=== PATIENT | female | born 1940 | race Caucasian/White ===

== ENCOUNTER 2016-09-29 10:35 | Emergency (ER) | payer MEDICARE, BC ==
[2016-09-29] MEDS: SODIUM CHLORIDE 0.9% FLUSH 10 ML SOL IV PRN ×2 (10:38→10:49)
[2016-09-29] MEDS ORDERED: METOPROLOL TARTRATE 5 MG/5 ML SOL IV ONE ×2 (10:43→10:47)
[2016-09-29] MEDS ORDERED: SODIUM CHLORIDE 0.9% 1000ML 1,000 ML IV ONE (10:50)
[2016-09-29 11:05] LABS: HEMATOCRIT 49 % (35-47); MEAN CORPUSCULAR HGB CONC 34.6 gm/dl (32.0-36.0); MEAN CORPUSCULAR VOLUME 89 fL (81-99)
[2016-09-29 11:08] VITALS: TEMP 96.3
[2016-09-29 11:15] LABS: BASOPHILS % (MANUAL) 0 % (0-3); EOSINOPHILS % (MANUAL) 0 % (0-9); LYMPHOCYTES % (MANUAL) 5 % (10-50); NORMAL RBCS PRESENT
[2016-09-29 11:20] LABS: ALBUMIN 3.8 gm/dl (3.4-5.0); ALT 46 IU/L (14-63); CALCIUM 9.9 mg/dl (8.5-10.1); GLOM FILT RATE 52 mL/min (>60); SODIUM 139 mMol/L (136-145)
[2016-09-29 12:12] LABS: APPEARANCE,URINE Clear; BILIRUBIN,URINE NEGATIVE (NEGATIVE); COLOR,URINE Yellow; GLUCOSE, URINE (UA) NEGATIVE (NEGATIVE); KETONES,URINE NEGATIVE (NEGATIVE); LEUKOCYTE ESTERASE ,URINE NEGATIVE (NEGATIVE); NITRATE,URINE NEGATIVE (NEGATIVE); OCCULT BLOOD,URINE NEGATIVE (NEG-TRACE); PH,URINE 6.5; UROBILINOGEN,URINE 0.2 (0.2-1.0 EU)
[2016-09-29 12:26] LABS: RBC,URINE NEGATIVE (0-3AV/HPF); WBC,URINE 0-1 (0-5AV/HPF)
[2016-09-29] MEDS ORDERED: NAPROXEN 500 MG TAB ONE (13:33)
[2016-09-29] MEDS ORDERED: NAPROXEN 500 MG TAB PO ONE (13:35)
[2016-09-29 14:49] VITALS: BP 133/80; PULSE 75; RESP 17; O2SAT 98
== END 2016-09-29 13:41 | disposition home or self-care (01) | DRG 310 ==
LOC: ED 10:35
DX: I47.1 Supraventricular tachycardia (principal); J06.9 Acute upper respiratory infection, unspecified
CPT/HCPCS: 71020; 80053; 81001; 84484; 85007; 85027; 93005; 96365; 96366; 96374; 99284; 99285

== ENCOUNTER 2017-04-18 09:26 | Emergency (ER) | payer MEDICARE, BC ==
[2017-04-18] MEDS ORDERED: METOPROLOL TARTRATE 5 MG/5 ML SOL IV ONE ×2 (09:39→09:41)
[2017-04-18] MEDS ORDERED: SODIUM CHLORIDE 0.9% FLUSH 10 ML SOL IV PRN (09:44)
[2017-04-18] MEDS ORDERED: SODIUM CHLORIDE 0.9% 1000ML 1,000 ML IV ONE (09:49)
[2017-04-18 10:17] LABS: CALCIUM 8.8 mg/dl (8.5-10.1); GLOM FILT RATE 55 mL/min (>60); MAGNESIUM 1.7 mg/dl (1.8-2.4); SODIUM 139 mMol/L (136-145); THYROID STIMULATING HORMONE 2.603 uIU/ml (0.358-3.740)
[2017-04-18 10:22] VITALS: O2SAT 95
[2017-04-18 10:24] VITALS: BP 116/74; PULSE 76; RESP 14; TEMP 99.2
[2017-04-18] MEDS ORDERED: MAGNESIUM SULFATE 1 GM/2 ML SOL IV ONE (10:48)
[2017-04-18] MEDS ORDERED: MAGNESIUM SULFATE 5 GM/10 ML SOL ONE (10:54)
[2017-04-18] MEDS ORDERED: ASPIRIN 325 MG TAB PO SCH (11:00)
[2017-04-18] MEDS ORDERED: ASPIRIN 325 MG TAB ONE (11:01)
== END 2017-04-18 12:25 | disposition home or self-care (01) | DRG 310 ==
LOC: ED 09:26
DX: I47.1 Supraventricular tachycardia (principal); E83.42 Hypomagnesemia; R53.83 Other fatigue
CPT/HCPCS: 36415; 80048; 83735; 84100; 84443; 84484; 85027; 85610; 93005; 96365; 96374; 96375; 99284; 99285; J3475

== ENCOUNTER 2018-01-25 09:15 | Emergency (ER) | payer MEDICARE, BC ==
[2018-01-25] MEDS ORDERED: SODIUM CHLORIDE 0.9% 1000ML 1,000 ML IV ONE (10:08)
[2018-01-25] MEDS ORDERED: ONDANSETRON HCL 4 MG/2 ML SOL IV ONE (10:09)
[2018-01-25] MEDS ORDERED: SODIUM CHLORIDE 0.9% FLUSH 10 ML SOL IV PRN (10:17)
[2018-01-25] MEDS ORDERED: ONDANSETRON HCL 4 MG/2 ML SOL ONE (10:18)
[2018-01-25 10:27] VITALS: RESP 16; TEMP 96.9
[2018-01-25 10:27] LABS: BASOPHILS % (AUTO) 1 % (0-3); EOSINOPHILS % (AUTO) 1 % (0-9); HEMATOCRIT 46 % (35-47); HEMOGLOBIN 15.2 gm/dl (12.0-15.5); LYMPHOCYTES % (AUTO) 9.7 % (10-50); MEAN CORPUSCULAR HGB CONC 33.1 gm/dl (32.0-36.0); MEAN CORPUSCULAR VOLUME 91 fL (81-99); MONOCYTES % (AUTO) 6.2 % (0-12)
[2018-01-25 10:39] LABS: ALBUMIN 3.3 gm/dl (3.4-5.0); BILIRUBIN,TOTAL 0.4 mg/dl (0.2-1.0); CREATININE 0.87 mg/dl (0.60-1.00); POTASSIUM 4.1 mMol/L (3.5-5.1); TOTAL PROTEIN 6.5 gm/dl (6.4-8.2)
[2018-01-25 12:03] VITALS: BP 147/80; PULSE 60; O2SAT 97
== END 2018-01-25 12:15 | disposition home or self-care (01) | DRG 392 ==
LOC: ED 09:15
DX: A08.4 Viral intestinal infection, unspecified (principal)
CPT/HCPCS: 80053; 85025; 96365; 96366; 96374; 99283; 99284; J2405

== ENCOUNTER 2018-03-01 13:12 | Emergency (ER) | payer MEDICARE, BC ==
[2018-03-01 13:30] LABS: BASOPHILS % (AUTO) 1 % (0-3); EOSINOPHILS % (AUTO) 4 % (0-9); HEMATOCRIT 50 % (35-47); HEMOGLOBIN 15.8 gm/dl (12.0-15.5); LYMPHOCYTES % (AUTO) 14.3 % (10-50); MEAN CORPUSCULAR HGB CONC 31.5 gm/dl (32.0-36.0); MEAN CORPUSCULAR VOLUME 92 fL (81-99); MONOCYTES % (AUTO) 7.6 % (0-12); NEUTROPHILS % (AUTO) 73.4 % (37-80)
[2018-03-01 13:42] VITALS: TEMP 97.2
[2018-03-01 13:46] LABS: ALBUMIN 3.4 gm/dl (3.4-5.0); ALKALINE PHOSPHATASE 71 IU/L (46-116); ALT 32 IU/L (14-63); AST 27 IU/L (15-37); BILIRUBIN,TOTAL 0.4 mg/dl (0.2-1.0); BLOOD UREA NITROGEN 25 mg/dl (7-18); CALCIUM 9.2 mg/dl (8.5-10.1); CARBON DIOXIDE 26.4 mEq/L (21-32); CHLORIDE 104 mMol/L (98-107); CREATININE 0.84 mg/dl (0.60-1.00); GLUCOSE 123 mg/dl (74-106); MAGNESIUM 2.3 mg/dl (1.8-2.4); POTASSIUM 4.2 mMol/L (3.5-5.1); SODIUM 139 mMol/L (136-145); THYROID STIMULATING HORMONE 3.097 uIU/ml (0.358-3.740); TOTAL PROTEIN 6.8 gm/dl (6.4-8.2); TROP I < 0.017 ng/ml (0.000-0.056)
[2018-03-01 15:11] VITALS: BP 124/80; PULSE 68; RESP 20; O2SAT 96
== END 2018-03-01 14:51 | disposition home or self-care (01) | DRG 309 ==
LOC: ED 13:12
DX: R00.2 Palpitations (principal); I47.1 Supraventricular tachycardia
CPT/HCPCS: 80053; 83735; 84443; 84484; 85025; 93005; 99283

== ENCOUNTER 2018-06-01 07:27 | Emergency (ER) | payer MEDICARE, BC ==
[2018-06-01 07:54] VITALS: TEMP 98.1; O2SAT 97
[2018-06-01 08:11] LABS: BASOPHILS % (AUTO) 1 % (0-3); EOSINOPHILS % (AUTO) 3 % (0-9); HEMATOCRIT 50 % (35-47); HEMOGLOBIN 16.2 gm/dl (12.0-15.5); LYMPHOCYTES % (AUTO) 12.5 % (10-50); MEAN CORPUSCULAR HEMOGLOBIN 29.7 pg (27.0-32.0); MEAN CORPUSCULAR HGB CONC 32.4 gm/dl (32.0-36.0); MEAN CORPUSCULAR VOLUME 92 fL (81-99); NEUTROPHILS % (AUTO) 73.4 % (37-80)
[2018-06-01 08:14] LABS: CALCIUM 9.3 mg/dl (8.5-10.1); CREATININE 0.98 mg/dl (0.60-1.00); POTASSIUM 3.6 mMol/L (3.5-5.1)
[2018-06-01 09:09] VITALS: BP 94/69; PULSE 89; RESP 17
== END 2018-06-01 08:48 | disposition home or self-care (01) | DRG 153 ==
LOC: ED 07:27
DX: J06.9 Acute upper respiratory infection, unspecified (principal); I47.1 Supraventricular tachycardia
CPT/HCPCS: 80048; 85025; 87430; 93005; 99284

== ENCOUNTER 2018-07-09 11:14 | Emergency (ER) | payer BC, MEDICARE, OTHER ==
[2018-07-09 11:25] VITALS: TEMP 97.9
[2018-07-09] MEDS ORDERED: METOPROLOL TARTRATE 5 MG/5 ML SOL IV SCH (11:30)
[2018-07-09 12:35] VITALS: PULSE 75; O2SAT 97
[2018-07-09 12:37] VITALS: BP 123/76; RESP 16
[2018-07-09] MEDS ORDERED: METOPROLOL TARTRATE 5 MG/5 ML SOL IV ONE (12:56)
== END 2018-07-09 12:15 | disposition home or self-care (01) | DRG 310 ==
LOC: ED 11:14
DX: I47.1 Supraventricular tachycardia (principal); I10 Essential (primary) hypertension
CPT/HCPCS: 93005; 96374; 99283; 99284; J3490

== ENCOUNTER 2018-11-12 15:50 | Emergency (ER) | payer OTHER ==
[2018-11-12 15:57] VITALS: RESP 20; TEMP 95.2
[2018-11-12] MEDS ORDERED: ONDANSETRON HCL 4 MG/2 ML SOL IV ONE (16:04)
[2018-11-12] MEDS ORDERED: ONDANSETRON HCL 4 MG/2 ML SOL ONE (16:12)
[2018-11-12 16:13] LABS: BASOPHILS % (AUTO) 1 % (0-3); EOSINOPHILS % (AUTO) 2 % (0-9); HEMATOCRIT 48 % (35-47); HEMOGLOBIN 15.4 gm/dl (12.0-15.5); LYMPHOCYTES % (AUTO) 8.6 % (10-50); MEAN CORPUSCULAR HEMOGLOBIN 28.8 pg (27.0-32.0); MEAN CORPUSCULAR VOLUME 90 fL (81-99); MONOCYTES % (AUTO) 6.2 % (0-12); NEUTROPHILS % (AUTO) 82.2 % (37-80)
[2018-11-12] MEDS ORDERED: SODIUM CHLORIDE 0.9% 1000ML 1,000 ML IV SCH (16:15)
[2018-11-12 16:28] LABS: ALBUMIN 3.4 gm/dl (3.4-5.0); BILIRUBIN,TOTAL 0.5 mg/dl (0.2-1.0); CALCIUM 9.3 mg/dl (8.5-10.1); CARBON DIOXIDE 28.9 mEq/L (21-32); CREATININE 0.86 mg/dl (0.60-1.00); TOTAL PROTEIN 6.7 gm/dl (6.4-8.2)
[2018-11-12 17:49] VITALS: BP 160/84; PULSE 71; O2SAT 99
== END 2018-11-12 17:46 | disposition home or self-care (01) | DRG 392 ==
LOC: ED 15:50
DX: R14.1 Gas pain (principal); R10.13 Epigastric pain
CPT/HCPCS: 74019; 80053; 85025; 96365; 96374; 99283; 99284; J2405

== ENCOUNTER 2018-11-13 00:42 | Inpatient (IN) | payer OTHER ==
[2018-11-13] MEDS ORDERED: ONDANSETRON 4 MG ODT BU ONE (01:04)
[2018-11-13] MEDS ORDERED: MORPHINE SULFATE 10 MG/ML SOL IV ONE (01:04)
[2018-11-13 01:08] LABS: BASOPHILS % (AUTO) 1 % (0-3); EOSINOPHILS % (AUTO) 3 % (0-9); HEMATOCRIT 48 % (35-47); HEMOGLOBIN 15.7 gm/dl (12.0-15.5); LYMPHOCYTES % (AUTO) 12.4 % (10-50); MEAN CORPUSCULAR HEMOGLOBIN 29.5 pg (27.0-32.0); MEAN CORPUSCULAR VOLUME 89 fL (81-99); MONOCYTES % (AUTO) 7.6 % (0-12); NEUTROPHILS % (AUTO) 76.1 % (37-80)
[2018-11-13] MEDS ORDERED: ONDANSETRON 4 MG ODT ONE (01:08)
[2018-11-13 01:25] LABS: ALBUMIN 3.5 gm/dl (3.4-5.0); BILIRUBIN,TOTAL 0.6 mg/dl (0.2-1.0); CALCIUM 9.1 mg/dl (8.5-10.1); CARBON DIOXIDE 27.7 mEq/L (21-32); CREATININE 0.94 mg/dl (0.60-1.00); POTASSIUM 3.8 mMol/L (3.5-5.1); TOTAL PROTEIN 6.9 gm/dl (6.4-8.2)
[2018-11-13 01:30] LABS: APPEARANCE,URINE Clear; BILIRUBIN,URINE NEGATIVE (NEGATIVE); COLOR,URINE Yellow; GLUCOSE, URINE (UA) NEGATIVE (NEGATIVE); KETONES,URINE 1+ (NEGATIVE); LEUKOCYTE ESTERASE ,URINE 1+ (NEGATIVE); NITRATE,URINE NEGATIVE (NEGATIVE); OCCULT BLOOD,URINE NEGATIVE (NEG-TRACE); PH,URINE 6.5; UROBILINOGEN,URINE 0.2 (0.2-1.0 EU)
[2018-11-13 01:37] LABS: BACTERIA NEGATIVE (< 1+); CRYSTALS NEGATIVE (0-3 AVE/HPF); EPITHELIAL CELLS NEGATIVE (SQUAMOUS); RBC,URINE NEG (0-3AV/HPF); WBC,URINE 0-1 (0-5AV/HPF)
[2018-11-13] MEDS ORDERED: SODIUM CHLORIDE 0.9% 1000ML 1,000 ML IV ONE (02:00)
[2018-11-13] MEDS ORDERED: SODIUM CHLORIDE 0.9% 1000ML 1,000 ML IV SCH (02:00)
[2018-11-13] MEDS ORDERED: ONDANSETRON HCL 4 MG/2 ML SOL IV ONE (02:01)
[2018-11-13] MEDS ORDERED: LACTATED RINGERS 1,000 ML IV ONE (02:02)
[2018-11-13] MEDS ORDERED: ONDANSETRON HCL 4 MG/2 ML SOL ONE (03:56)
[2018-11-13] MEDS ORDERED: POTASSIUM CHLORIDE 2 MEQ/ML SOL IV ONE ×2 (08:56→16:17)
[2018-11-13] MEDS: DEXTROSE/SALINE 0.9% 1,000 ML with POTASSIUM CHLORIDE 2 MEQ/ML 20 MEQ IV SCH ×3 (08:59→23:41)
[2018-11-13 09:04] VITALS: RESP 16
[2018-11-13] MEDS ORDERED: DEXTROSE/SALINE 0.45/KCL 20MEQ 1,000 ML/1,000 ML SOL IV ONE (15:59)
[2018-11-13] MEDS ORDERED: METOPROLOL TARTRATE 25 MG TAB PO PRN (21:02)
[2018-11-14] MEDS ORDERED: POTASSIUM CHLORIDE 2 MEQ/ML SOL IV ONE (00:41)
[2018-11-14] MEDS ORDERED: DEXTROSE/SALINE 0.9% 1,000 ML with POTASSIUM CHLORIDE 2 MEQ/ML 20 MEQ IV SCH (01:00)
[2018-11-14] MEDS ORDERED: ACETAMINOPHEN 500 MG 500 MG TAB PO PRN (06:53)
[2018-11-14] MEDS ORDERED: IBUPROFEN 600 MG TAB PO PRN (07:57)
[2018-11-14 07:58] LABS: BASOPHILS % (AUTO) 2 % (0-3); EOSINOPHILS % (AUTO) 9 % (0-9); HEMATOCRIT 45 % (35-47); HEMOGLOBIN 14.5 gm/dl (12.0-15.5); LYMPHOCYTES % (AUTO) 23.1 % (10-50); MEAN CORPUSCULAR HEMOGLOBIN 29.1 pg (27.0-32.0); MEAN CORPUSCULAR HGB CONC 32.4 gm/dl (32.0-36.0); MEAN CORPUSCULAR VOLUME 90 fL (81-99); MONOCYTES % (AUTO) 10.7 % (0-12); NEUTROPHILS % (AUTO) 55.4 % (37-80)
[2018-11-14] MEDS ORDERED: SODIUM CHLORIDE 0.9% FLUSH 10 ML SOL IV SCH (08:00)
[2018-11-14 08:30] LABS: ALBUMIN 3.1 gm/dl (3.4-5.0); BILIRUBIN,TOTAL 0.7 mg/dl (0.2-1.0); CALCIUM 8.7 mg/dl (8.5-10.1); CARBON DIOXIDE 28.9 mEq/L (21-32); CREATININE 0.79 mg/dl (0.60-1.00); TOTAL PROTEIN 6.2 gm/dl (6.4-8.2)
[2018-11-14] MEDS ORDERED: ACETAMINOPHEN 500 MG 500 MG TAB PO SCH (09:00)
[2018-11-14] MEDS ORDERED: LISINOPRIL 5 MG TAB PO SCH (09:00)
[2018-11-14 09:28] VITALS: TEMP 97.7
[2018-11-14 10:52] VITALS: PULSE 64; O2SAT 98
[2018-11-14 14:08] VITALS: BP 127/74
== END 2018-11-14 14:45 | disposition home or self-care (01) | DRG 390 ==
LOC: ED 00:42 → ACUTE CARE 09:15
PROVIDERS: ADMIT Family Medicine; ATTEND Family Medicine
DX: K56.690 Other partial intestinal obstruction (principal); R11.0 Nausea; R06.02 Shortness of breath; R10.9 Unspecified abdominal pain; R51 Headache; I10 Essential (primary) hypertension
CPT/HCPCS: 36415; 74177; 80053; 81001; 85025; 87077; 87088; 87186; 96365; 96366; 96374; 99222; 99285; J2405; J3480; Q9967; A9270-GY

== ENCOUNTER 2019-01-05 05:04 | Observation (INO) | payer OTHER ==
[2019-01-05] MEDS ORDERED: ONDANSETRON HCL 4 MG/2 ML SOL IV ONE (05:26)
[2019-01-05] MEDS ORDERED: ONDANSETRON HCL 4 MG/2 ML SOL ONE (05:31)
[2019-01-05 05:58] LABS: BASOPHILS % (AUTO) 0 % (0-3); EOSINOPHILS % (AUTO) 0 % (0-9); HEMATOCRIT 50 % (35-47); HEMOGLOBIN 16.2 gm/dl (12.0-15.5); LYMPHOCYTES % (AUTO) 2.6 % (10-50); MEAN CORPUSCULAR HEMOGLOBIN 30.8 pg (27.0-32.0); MEAN CORPUSCULAR HGB CONC 32.3 gm/dl (32.0-36.0); MEAN CORPUSCULAR VOLUME 96 fL (81-99); MONOCYTES % (AUTO) 3.5 % (0-12); NEUTROPHILS % (AUTO) 93.1 % (37-80)
[2019-01-05 06:14] LABS: LACTIC ACID 1.6 mMol/L (0.0-2.0)
[2019-01-05 06:15] LABS: INR 0.97 (0.87-1.13)
[2019-01-05 06:15] LABS: APPEARANCE,URINE Clear; BILIRUBIN,URINE NEGATIVE (NEGATIVE); COLOR,URINE Yellow; GLUCOSE, URINE (UA) NEGATIVE (NEGATIVE); KETONES,URINE NEGATIVE (NEGATIVE); LEUKOCYTE ESTERASE ,URINE NEGATIVE (NEGATIVE); NITRATE,URINE NEGATIVE (NEGATIVE); OCCULT BLOOD,URINE NEGATIVE (NEG-TRACE); PH,URINE >=9.0; UROBILINOGEN,URINE 0.2 (0.2-1.0 EU)
[2019-01-05 06:25] LABS: ALBUMIN 3.5 gm/dl (3.4-5.0); ALKALINE PHOSPHATASE 72 IU/L (46-116); ALT 31 IU/L (14-63); AMYLASE 60 IU/L (25-115); AST 21 IU/L (15-37); BILIRUBIN,TOTAL 0.6 mg/dl (0.2-1.0); BLOOD UREA NITROGEN 22 mg/dl (7-18); CALCIUM 8.7 mg/dl (8.5-10.1); CARBON DIOXIDE 28.2 mEq/L (21-32); CHLORIDE 104 mMol/L (98-107); CREATININE 1.02 mg/dl (0.60-1.00); GLUCOSE 139 mg/dl (74-106); TOTAL PROTEIN 7.1 gm/dl (6.4-8.2); TROP I < 0.017 ng/ml (0.000-0.056)
[2019-01-05 06:28] LABS: BACTERIA TRACE (< 1+); CRYSTALS NEGATIVE (0-3 AVE/HPF); EPITHELIAL CELLS 0-2 (SQUAMOUS); RBC,URINE 0-1 (0-3AV/HPF); WBC,URINE 0-3 (0-5AV/HPF)
[2019-01-05] MEDS ORDERED: SODIUM CHLORIDE 0.9% 1000ML 1,000 ML IV ONE (07:53)
[2019-01-05 10:36] LABS: THYROID STIMULATING HORMONE 1.086 uIU/ml (0.358-3.740); TROP I < 0.017 ng/ml (0.000-0.056)
[2019-01-05 16:13] VITALS: RESP 18; O2SAT 96
[2019-01-05 16:21] LABS: TROP I < 0.017 ng/ml (0.000-0.056)
[2019-01-05 18:10] VITALS: BP 120/70; PULSE 96; TEMP 98.6
== END 2019-01-05 19:25 | disposition home or self-care (01) | DRG 392 ==
LOC: ED 05:04 → ACUTE CARE 11:41 → UNDOADMOB 11:41 → ACUTE CARE 12:00
PROVIDERS: ADMIT Family Medicine; ATTEND Family Medicine
DX: R11.0 Nausea (principal); R94.31 Abnormal electrocardiogram [ECG] [EKG]; R10.9 Unspecified abdominal pain; R53.83 Other fatigue; I10 Essential (primary) hypertension; N85.8 Other specified noninflammatory disorders of uterus; R39.15 Urgency of urination; R32 Unspecified urinary incontinence
CPT/HCPCS: 36415; 71046; 74019; 74177; 80053; 81001; 82150; 83605; 83690; 84443; 84484; 85025; 85610; 93005; 93012; 96365; 96366; 96374; 99284; 99285; J2405; Q9967